=== PATIENT | female | born 1945 | race Caucasian/White ===

== ENCOUNTER 2017-03-16 21:18 | Inpatient (IN) | payer OTHER ==
[~2017-03-16] VITALS: Ht 175.3 cm; Wt 86.2 kg
[~2017-03-16 21:18] MED LIST: HYDROCHLOROTHIA25 MG PO; LO-DOSE ASPIRIN81 M1 PO; NORVASC5 MG PO; PRAVACHOL20 MG PO; PRESERVISION A1 EAC2 PO; TENORMIN25 MG PO; VITAMIN E400 UNIT PO; VOLTAREN75 MG PO
[2017-03-17 08:17] VITALS: BP 115/62
[2017-03-17 13:00] VITALS: BP 119/57
[2017-03-17 15:38] VITALS: BP 123/57
[2017-03-17 19:56] VITALS: BP 134/62
[2017-03-17 23:55] VITALS: BP 101/50
[2017-03-18 03:58] VITALS: BP 160/80
[2017-03-18 04:11] VITALS: BP 106/96
[2017-03-18 07:48] LABS: HEMATOCRIT 34.3 % (36.0-46.0); MCV 96.3 FL (83-99)
[2017-03-18 07:58] VITALS: BP 115/57
[2017-03-18 08:17] LABS: ANION GAP 5 MEQ/L (2-14); CHLORIDE 103 MEQ/L (99-109); GFR ESTIMATE (CALCULATED) > 59 mL/min/; GLUCOSE 140 mg/dL (70-99); POTASSIUM 4.2 MEQ/L (3.7-5.4); SAMPLE HEMOLYSIS CHECK 0; SAMPLE ICTERIC CHECK 0; SAMPLE LIPEMIA CHECK 0; SODIUM 141 MEQ/L (136-147); UREA NITROGEN (BUN) 19 mg/dL (9-23)
[2017-03-18] MEDS ORDERED: CELECOXIB200 MG PO (09:44)
[2017-03-18] MEDS ORDERED: OXYCODONE HCL5 MG PO (09:44)
[2017-03-18] MEDS ORDERED: ELIQUIS2.5 MG PO (09:44)
[2017-03-18 11:51] VITALS: BP 102/54
[2017-03-18 15:44] VITALS: BP 113/59
[2017-03-18 20:11] VITALS: BP 120/56
[2017-03-19 00:12] VITALS: BP 115/56
[2017-03-19 03:50] VITALS: BP 116/59
[2017-03-19 04:25] LABS: HEMATOCRIT 32.7 % (36.0-46.0); MCV 93.7 FL (83-99)
[2017-03-19 08:00] VITALS: BP 112/59
[2017-03-19 12:58] VITALS: BP 108/64
== END 2017-03-19 16:00 | disposition home health service (06) | DRG 470 ==
LOC: ENRESERV 21:18 → 3WEST 03-17 06:33 → 2SOUTH 03-17 06:33 → 3WEST 03-17 12:33 → 2SOUTH 03-17 13:39 → 3WEST 03-19 16:00
PROVIDERS: Orthopaedic Surgery
PROC: 0SRC0J9 Replacement of Right Knee Joint with Synthetic Substitute, Cemented, Open Approach (ICD-10-PCS; principal; 2017-03-17)
DX: M17.11 Unilateral primary osteoarthritis, right knee (principal); I10 Essential (primary) hypertension; E78.00 Pure hypercholesterolemia, unspecified; G47.33 Obstructive sleep apnea (adult) (pediatric)
CPT/HCPCS: 80048; 85014; 85018; 93971; C1713; J0131; J0690; J1885; J2250; J2405; J2795; J7050; Q0175

== ENCOUNTER 2018-02-09 21:09 | Inpatient (IN) | payer OTHER, BC ==
[~2018-02-09] VITALS: Ht 175.3 cm; Wt 88.2 kg
[~2018-02-09 21:09] MED LIST changes: +CELECOXIB200 MG PO; +ELIQUIS2.5 MG PO; +IRON325 M1 PO; +MELOXICAM15 MG PO; +OXYCODONE HCL5 MG PO; +TRAMADOL HCL50 MG PO; +TYLENOL EXTRA500 MG PO
[2018-02-10] MEDS ORDERED: ATENOLOL25 MG PO (10:10)
[2018-02-10 10:29] VITALS: BP 147/75
[2018-02-10 19:32] VITALS: BP 140/73
[2018-02-10 23:19] VITALS: BP 108/55
[2018-02-11 04:13] VITALS: BP 106/60
[2018-02-11 06:19] LABS: HEMATOCRIT 30.4 % (36.0-46.0); MCV 92.7 FL (83-99)
[2018-02-11 06:30] LABS: HEMOGLOBIN 9.6 G/DL (11.9-15.5)
[2018-02-11 06:43] LABS: CHLORIDE 106 MEQ/L (99-109); CREATININE 0.7 MG/DL (0.6-1.3); GFR ESTIMATE (CALCULATED) > 59 mL/min/; GLUCOSE 119 mg/dL (70-99); POTASSIUM 3.8 MEQ/L (3.7-5.4); SODIUM 143 MEQ/L (136-147); UREA NITROGEN (BUN) 15 mg/dL (9-23)
[2018-02-11 07:57] VITALS: BP 125/60
[2018-02-11 10:58] VITALS: BP 121/56
[2018-02-11 15:55] VITALS: BP 126/58
[2018-02-11 19:56] VITALS: BP 129/58
[2018-02-11 23:37] VITALS: BP 126/57
[2018-02-12 06:42] LABS: HEMATOCRIT 32.5 % (36.0-46.0); MCV 93.9 FL (83-99)
[2018-02-12 07:44] VITALS: BP 138/63
[2018-02-12] MEDS ORDERED: CELECOXIB200 MG PO (09:23)
[2018-02-12] MEDS ORDERED: SENNA PLUS TAB1 EACH PO (09:23)
[2018-02-12] MEDS ORDERED: OXYCODONE HCL5 MG PO (09:23)
[2018-02-12] MEDS ORDERED: ELIQUIS2.5 MG PO (15:15)
== END 2018-02-12 15:56 | disposition home or self-care (01) | DRG 468 ==
LOC: ENRESERV 21:09 → 3EAST 02-10 09:32 → 2SOUTH 02-10 09:32 → ENRESERV 02-10 10:08 → 2SOUTH 02-10 11:02 → ENRESERV 02-10 13:15 → 3EAST 02-10 19:13
PROVIDERS: Orthopaedic Surgery
DX: T84.84XA Pain due to internal orthopedic prosthetic devices, implants and grafts, initial encounter (principal); J44.9 Chronic obstructive pulmonary disease, unspecified; E78.2 Mixed hyperlipidemia; T84.032A Mechanical loosening of internal right knee prosthetic joint, initial encounter; E66.3 Overweight; Y83.1 Surgical operation with implant of artificial internal device as the cause of abnormal reaction of the patient, or of later complication, without mention of misadventure at the time of the procedure; I10 Essential (primary) hypertension; M79.89 Other specified soft tissue disorders; M25.561 Pain in right knee; M79.661 Pain in right lower leg; Z96.651 Presence of right artificial knee joint; Z68.28 Body mass index [BMI] 28.0-28.9, adult
CPT/HCPCS: 80048; 85014; 85018; 87070; 87075; 87205; 88305; 93971; C1713; C1776; J0131; J0690; J1100; J1170; J1885; J2250; J2405; J2795; J3010; J7050; S0020